=== PATIENT | female | born 1955 | race Caucasian/White ===

== ENCOUNTER → 2022-06-11 | Outpatient (CLI) | payer MEDICARE | END | disposition home or self-care (01) | LOC: RAD 00:20 | PROVIDERS: ATTEND Nurse Practitioner | DX: M85.851 Other specified disorders of bone density and structure, right thigh (principal) ==

== ENCOUNTER 2022-07-15 10:09 | Emergency (ER) | payer MEDICARE ==
[~2022-07-15] VITALS: Ht 157.4 cm; Wt 59.0 kg
== END 2022-07-15 12:05 | disposition home or self-care (01) ==
LOC: ED 10:09
DX: S93.401A Sprain of unspecified ligament of right ankle, initial encounter (principal); J45.909 Unspecified asthma, uncomplicated; Z88.6 Allergy status to analgesic agent; Z88.5 Allergy status to narcotic agent; X50.1XXA Overexertion from prolonged static or awkward postures, initial encounter; Y93.89 Activity, other specified; Y92.89 Other specified places as the place of occurrence of the external cause; Y99.8 Other external cause status